=== PATIENT | female | born 1990 | race Caucasian/White ===

== ENCOUNTER 2024-06-08 07:51 | Emergency (ER) | payer OTHER ==
[~2024-06-08] VITALS: Ht 170.2 cm; Wt 113.4 kg
[2024-06-08 08:02] VITALS: TEMP 98.9
[2024-06-08 08:38] LABS: BASOPHILS # (AUTO) 0.1 (0.0-0.1); BASOPHILS % 0.7 % (0.0-1.0); EOSINOPHILS # (AUTO) 0.1 (0.0-0.4); EOSINOPHILS % 1.2 % (0.0-6.0); HEMATOCRIT 38.2 % (34.2-44.1); HEMOGLOBIN 12.4 g/dL (12.0-16.0); LYMPHOCYTES % 26.8 % (18.0-39.1); MEAN CORPUSCULAR HEMOGLOBIN 25.6 pg (28-32); MEAN CORPUSCULAR HGB CONC 32.5 g/dL (31-35); MEAN CORPUSCULAR VOLUME 78.8 fL (81-99); MONOCYTES # (AUTO) 0.5 (0.2-0.8); NEUTROPHILS # (AUTO) 4.8 (2.1-6.9); PLATELET COUNT 353 x10e3/uL (140-360); RED BLOOD COUNT 4.85 x10e6/uL (3.6-5.1); RED CELL DISTRIBUTION WIDTH 13.7 % (11.7-14.4); WHITE BLOOD COUNT 7.45 x10e3/uL (4.8-10.8)
[2024-06-08 08:43] LABS: INR 0.97; PARTIAL THROMBOPLASTIN TIME 23.7 seconds (23.8-35.5); PROTHROMBIN TIME 13.5 seconds (11.9-14.5)
[2024-06-08] MEDS: ONDANSETRON HCL INJ 2MG/ML 2ML 2 MG/ML VIAL IV STA (08:43)
[2024-06-08] MEDS: SODIUM CHLORIDE 0.9% 1000ML 1,000 ML IV STA (08:44)
[2024-06-08 08:59] LABS: ALANINE AMINOTRANSFERASE 28 IU/L (0-55); ALBUMIN 4.4 g/dL (3.5-5.0); ALBUMIN/GLOBULIN RATIO 1.2 (0.8-2.0); ALKALINE PHOSPHATASE 80 IU/L (40-150); ANION GAP 15.8 mmol/L (8-16); BILIRUBIN,TOTAL 0.5 mg/dL (0.2-1.2); BLOOD UREA NITROGEN 11 mg/dL (7-26); BUN/CREATININE RATIO 13 (6-25); CALCIUM 9.6 mg/dL (8.4-10.2); CARBON DIOXIDE 21 mmol/L (22-29); CHLORIDE 105 mmol/L (98-107); CREATININE, SERUM 0.88 mg/dL (0.57-1.11); EST GLOMERULAR FILTRATION RATE 88 ML/MIN (>=60); GLUCOSE 136 mg/dL (74-118); LIPASE 19 U/L (8-78); MAGNESIUM 1.9 MG/DL (1.3-2.1); POTASSIUM 3.8 mmol/L (3.5-5.1); SODIUM 138 mmol/L (136-145); TOTAL PROTEIN 8.2 g/dL (6.5-8.1)
[2024-06-08] MEDS: KETOROLAC TROMETHAMINE 30 MG/ML VIAL IV STA (09:34)
[2024-06-08 09:38] LABS: CLARITY,URINE SL CLOUDY (CLEAR); COLOR,URINE RED (YELLOW); LEUKOCYTE ESTERASE ,URINE NEGATIVE (NEGATIVE); NITRITE,URINE NEGATIVE (NEGATIVE); PH,URINE 7 (5 - 7); PROTEIN,URINE DIPSTICK 2+ (NEGATIVE)
[2024-06-08 09:39] LABS: BILIRUBIN,URINE NEGATIVE (NEGATIVE); GLUCOSE, URINE NEGATIVE (NEGATIVE); KETONES,URINE TRACE (NEGATIVE); URINE UROBILINOGEN 0.2 mg/dL (0.2 - 1)
[2024-06-08 09:52] LABS: RBC,URINE >50 /HPF (0-5)
[2024-06-08 09:54] LABS: EPITHELIAL CELLS,URINE FEW /LPF
[2024-06-08 09:57] LABS: BACTERIA,URINE FEW /HPF
[2024-06-08 09:58] LABS: WBC,URINE (MAN) 0-5 /HPF (0-5)
[2024-06-08] MEDS ORDERED: PANTOPRAZOLE SO40 MG PO (10:45)
[2024-06-08] MEDS ORDERED: ONDANSETRON ODT4 MG PO (10:45)
[2024-06-08 11:03] VITALS: PULSE 76; RESP 16; O2SAT 100
== END 2024-06-08 11:13 | disposition home or self-care (01) ==
LOC: ER 07:56
DX: R11.2 Nausea with vomiting, unspecified (principal); K29.70 Gastritis, unspecified, without bleeding; R10.12 Left upper quadrant pain; K76.0 Fatty (change of) liver, not elsewhere classified; F41.9 Anxiety disorder, unspecified; F32.A Depression, unspecified
CPT/HCPCS: 36415; 71045; 76705; 80053; 81001; 83690; 83735; 84702; 85025; 85610; 85730; 99284; J2405; J2470; J7030; J1885